=== PATIENT | male | born 1950 | race American Indian/Alaskan Native ===

== ENCOUNTER 2018-01-22 12:20 | Emergency (ER) | payer MEDICARE ==
--- NOTE | 2018-01-22 14:55 | Emergency Department Report ---
ED Male HPI - General Chief complaint: Medical Clearance Stated complaint: CATHER CHANGE Time Seen by Provider: 01/22/18 14:42 Source: patient Mode of arrival: Ambulatory Limitations: No Limitations - History of Present Illness Initial comments: Mr. Crum is a 67 yo male who presents with leaking Salomon catheter. He stated urine is leaking around his indwelling Salomon catheter. He is highly uncomfortable because the urine is soiling his clothes. He denies any pain. He underwent urological procedure by Dr. Martinez at [facility] 2 weeks ago. He denies any pain or fever. He needs his Salomon catheter changed due to the leaking. Currently has a [address] with leg bag. MD Complaint: other -: Gradual, days(s) (2) Severity: mild recent surgery, indwelling catheter denies other symptoms - Related Data Home Medications Medication Instructions Recorded Confirmed Last Taken Fluticasone/Salmeterol [Advair 2 puff INHALATION BID 03/22/14 03/22/14 Unknown Diskus 250-50 mcg] Furosemide [Lasix TAB] 20 mg PO DAILY 03/22/14 03/22/14 Unknown Ipratropium/Albuterol Sulfate 1 ampul INHALATION QID 03/22/14 03/22/14 Unknown [Combivent Respimat] Nabumetone [Relafen] 500 mg PO BID 03/22/14 03/22/14 Unknown Potassium Chloride [Klor-Con 8] 8 meq PO DAILY 03/22/14 03/22/14 Unknown Tamsulosin [Flomax] 0.4 mg PO QHS 03/22/14 03/22/14 Unknown Tramadol HCl [traMADol ER 300 MG] 50 mg PO DAILY 03/22/14 03/22/14 Unknown Previous Rx's Medication Instructions Recorded Last Taken Type Cyclobenzaprine [Flexeril 10mg] 10 mg PO TID PRN #30 tablet 03/22/14 Unknown Rx HYDROcodone/APAP 7.5-325 [[place] 1 each PO Q6HR PRN #20 tablet 03/22/14 Unknown Rx 7.5/325 mg] Ibuprofen [Motrin] 600 mg PO Q8H PRN #60 tablet 03/22/14 Unknown Rx Allergies Allergy/AdvReac Type Severity Reaction Status Date / Time No Known Allergies Allergy Verified 01/22/18 12:25 ED Review of Systems ROS: Stated complaint: CATHER CHANGE Other details as noted in HPI Constitutional: denies: fever, malaise Gastrointestinal: denies: abdominal pain, nausea, vomiting Genitourinary: denies: urgency, dysuria, frequency, hematuria, testicular pain, testicular mass Musculoskeletal: denies: back pain ED Past Medical Hx - Past Medical History Hx Hypertension: Yes Hx Asthma: Yes Additional medical history: ENLARGED PROSTATE - Social History Smoking Status: Never Smoker Substance Use Type: None - Medications Home Medications: Home Medications Medication Instructions Recorded Confirmed Last Taken Type Cyclobenzaprine [Flexeril 10mg] 10 mg PO TID PRN #30 tablet 03/22/14 Unknown Rx Fluticasone/Salmeterol [Advair 2 puff INHALATION BID 03/22/14 03/22/14 Unknown History Diskus 250-50 mcg] Furosemide [Lasix TAB] 20 mg PO DAILY 03/22/14 03/22/14 Unknown History HYDROcodone/APAP 7.5-325 [[place] 1 each PO Q6HR PRN #20 tablet 03/22/14 Unknown Rx 7.5/325 mg] Ibuprofen [Motrin] 600 mg PO Q8H PRN #60 tablet 03/22/14 Unknown Rx Ipratropium/Albuterol Sulfate 1 ampul INHALATION QID 03/22/14 03/22/14 Unknown History [Combivent Respimat] Nabumetone [Relafen] 500 mg PO BID 03/22/14 03/22/14 Unknown History Potassium Chloride [Klor-Con 8] 8 meq PO DAILY 03/22/14 03/22/14 Unknown History Tamsulosin [Flomax] 0.4 mg PO QHS 03/22/14 03/22/14 Unknown History Tramadol HCl [traMADol ER 300 MG] 50 mg PO DAILY 03/22/14 03/22/14 Unknown History ED Physical Exam - General Limitations: No Limitations General appearance: alert, in no apparent distress - Head Head exam: Present: atraumatic, normocephalic - Respiratory Respiratory exam: Absent: respiratory distress - GI/Abdominal GI/Abdominal exam: Present: soft. Absent: distended, tenderness, guarding - exam: Present: other (uncircumcised, no urine leaking from meatus, catheter tubing and leg bag filled with bag) - Extremities Exam Extremities exam: Present: normal inspection ED Course Vital Signs 01/22/18 12:26 Temperature 97.8 F Pulse Rate 86 Respiratory 18 Rate Blood Pressure 156/83 O2 Sat by Pulse 93 Oximetry ED Medical Decision Making - Medical Decision Making Mr. Crum requests salomon catheter change due to leaking of urine. Our staff replaced the salomon catheter without complication. dc'd home. His urologist plans to removed the catheter on January 29 according to patient. Critical care attestation.: If time is entered above; I have spent that time in minutes in the direct care of this critically ill patient, excluding procedure time. ED Disposition Clinical Impression: Salomon catheter problem Disposition: DC-01 TO HOME OR SELFCARE Is pt being admited?: No Does the pt Need Aspirin: No Condition: Stable Instructions: Salomon Catheter Placement and Care (ED) Additional Instructions: Please contact your urologist Dr. Martinez. Referrals: CARLITOS SCHULTZ [Other] - 3-5 Days Time of Disposition: 14:55
[2018-01-22 15:18] VITALS: BP 154/73
== END 2018-01-22 15:16 | disposition home or self-care (01) ==
LOC: ED 12:20
DX: T83.038A Leakage of other urinary catheter, initial encounter (principal); I10 Essential (primary) hypertension; J45.909 Unspecified asthma, uncomplicated; Y84.6 Urinary catheterization as the cause of abnormal reaction of the patient, or of later complication, without mention of misadventure at the time of the procedure
CPT/HCPCS: 51702

== ENCOUNTER 2019-08-15 04:03 | Emergency (ER) | payer MEDICARE ==
[2019-08-15 04:46] VITALS: BP 160/80
[2019-08-15] MEDS ORDERED: ASPIRIN 325 MG TAB PO ONE (04:47)
[2019-08-15 05:18] LABS: Basophils % (Auto) 0.7 % (0.0-1.8); Eosinophils # (Auto) 0.4 K/mm3 (0.0-0.4); Eosinophils % (Auto) 6.3 % (0.0-4.3); Hemoglobin 11.6 gm/dl (11.8-15.2); Lymphocytes # (Auto) 1.3 K/mm3 (1.2-5.4); Lymphocytes % (Auto) 18.4 % (13.4-35.0); Mean Corpuscular HGB Conc 33 % (32-34); Mean Corpuscular Volume 86 fl (84-94); Monocytes # (Auto) 0.8 K/mm3 (0.0-0.8); Monocytes % (Auto) 11.2 % (0.0-7.3); Platelet Count 348 K/mm3 (140-440); Red Cell Distribution Width 14.7 % (13.2-15.2)
[2019-08-15 05:40] LABS: BUN/Creatinine Ratio 16; Blood Urea Nitrogen 13 mg/dL (9-20); Calcium 9.2 mg/dL (8.4-10.2); Hemolysis Index 66
--- NOTE | 2019-08-15 05:49 | XRay Report ---
CHEST 1 VIEW 5:12 AM INDICATION / CLINICAL INFORMATION: Chest Pain. COMPARISON: None available. FINDINGS: SUPPORT DEVICES: None. HEART / MEDIASTINUM: The heart size and pulmonary vasculature are normal. The aorta is normal in moises aleksandr. LUNGS / PLEURA: No significant pulmonary or pleural abnormality. No pneumothorax. ADDITIONAL FINDINGS: No significant additional findings. IMPRESSION:No acute findings. Signer Name: Nawaf Oliver MD Signed: 08/15/2019 5:45 AM Workstation Name: [id number]
== END 2019-08-15 11:32 ==
LOC: ED 04:03
DX: R06.02 Shortness of breath (principal); Z53.21 Procedure and treatment not carried out due to patient leaving prior to being seen by health care provider
CPT/HCPCS: 36415; 71045; 80048; 84484; 85025; 93005; 93010

== ENCOUNTER 2020-03-12 11:47 | Emergency (ER) | payer MEDICARE ==
--- NOTE | 2020-03-12 12:02 | Emergency Department Report ---
Blank Doc - Documentation Documentation: 69-year-old male that presents with SOB w/ history of COPD. This initial assessment/diagnostic orders/clinical plan/treatment(s) is/are subject to change based on patient's health status, clinical progression and re- assessment by fellow clinical providers in the ED. Further treatment and workup at subsequent clinical providers discretion. Patient/guardians urged not to elope from the ED as their condition may be serious if not clinically assessed and managed. Initial orders include: 1- Patient sent to MAIN ED for further evaluation and treatment 2- cardiac workup
--- NOTE | 2020-03-12 12:31 | XRay Report ---
CHEST 2 VIEWS INDICATION / CLINICAL INFORMATION: Chest Pain. COMPARISON: 08/15/2019 FINDINGS: SUPPORT DEVICES: None. HEART / MEDIASTINUM: No significant abnormality. LUNGS / PLEURA: No significant pulmonary or pleural abnormality. No pneumothorax. ADDITIONAL FINDINGS: No significant additional findings. IMPRESSION: 1. No acute findings. Signer Name: Nawaf Murillo MD Signed: 03/12/2020 12:27 PM Workstation Name: [id number]
[2020-03-12 13:57] LABS: Basophils # (Auto) 0.1 K/mm3 (0.0-0.1); Basophils % (Auto) 1.3 % (0.0-1.8); Eosinophils # (Auto) 0.6 K/mm3 (0.0-0.4); Hematocrit 33.5 % (35.5-45.6); Hemoglobin 11.1 gm/dl (11.8-15.2); Lymphocytes # (Auto) 1.3 K/mm3 (1.2-5.4); Lymphocytes % (Auto) 21.3 % (13.4-35.0); Mean Corpuscular HGB Conc 33 % (32-34); Mean Corpuscular Volume 86 fl (84-94); Monocytes # (Auto) 0.6 K/mm3 (0.0-0.8); Monocytes % (Auto) 10.3 % (0.0-7.3); Platelet Count 361 K/mm3 (140-440); Red Cell Distribution Width 14.3 % (13.2-15.2)
[2020-03-12 14:08] LABS: INR 0.88 (0.87-1.13)
[2020-03-12 14:09] LABS: Partial Thromboplastin Time 30.9 Sec. (24.2-36.6)
[2020-03-12 14:21] LABS: Alanine Aminotransferase 12 units/L (7-56); Albumin 3.7 g/dL (3.9-5); BUN/Creatinine Ratio 21; Blood Urea Nitrogen 23 mg/dL (9-20); Calcium 9.6 mg/dL (8.4-10.2); Hemolysis Index 17
[2020-03-12] MEDS ORDERED: ALBUTEROL 2.5 MG/3 ML NEBU IH ONE (14:42)
[2020-03-12] MEDS ORDERED: IPRATROPIUM 0.02% NEBU 2.5 ML IH ONE (14:42)
[2020-03-12] MEDS ORDERED: methylPREDNISolone Sod Succinate 125 MG/2 ML INJ IM ONE (14:43)
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
[2020-03-12 16:23] VITALS: BP 146/78
== END 2020-03-12 17:29 | disposition home or self-care (01) ==
LOC: ED 11:47
DX: J44.1 Chronic obstructive pulmonary disease with (acute) exacerbation (principal); I10 Essential (primary) hypertension; E11.9 Type 2 diabetes mellitus without complications; M19.91 Primary osteoarthritis, unspecified site; Z98.890 Other specified postprocedural states; Z87.891 Personal history of nicotine dependence; Z79.1 Long term (current) use of non-steroidal anti-inflammatories (NSAID); Z79.899 Other long term (current) drug therapy; Z88.8 Allergy status to other drugs, medicaments and biological substances
CPT/HCPCS: 36415; 71046; 80053; 83880; 84484; 85025; 85610; 85730; 93005; 94640; 96372; 99284; J2930; 94644

== ENCOUNTER 2020-03-28 15:15 | Emergency (ER) | payer MEDICARE ==
--- NOTE | 2020-03-28 16:09 | Event Note ---
ED Screening Note Date of service: 03/28/20 Time: 16:06 ED Screening Note: patient here as second visit for COPD exacerbation This initial assessment/diagnostic orders/clinical plan/treatment(s) is/are subject to change based on patients health status, clinical progression and re- assessment by fellow clinical providers in the ED. Further treatment and workup at subsequent clinical providers discretion. Patient/guardian urged not to elope from the ED as their condition may be serious if not clinically assessed and managed. Initial orders include: cbc,cmp, ekg, chest x-ray
--- NOTE | 2020-03-28 16:45 | XRay Report ---
CHEST 2 VIEWS INDICATION / CLINICAL INFORMATION: Dyspnea. COMPARISON: 03/12/2020 FINDINGS: SUPPORT DEVICES: None. HEART / MEDIASTINUM: No significant abnormality. LUNGS / PLEURA: Changes of COPD No pneumothorax. ADDITIONAL FINDINGS: No significant additional findings. IMPRESSION: Changes of COPD. No acute disease or interval change from 03/12/2020 Signer Name: Jonathan Salomon MD FACR Signed: 03/28/2020 4:40 PM Workstation Name: [id number]
[2020-03-28 18:08] LABS: Basophils % (Auto) 0.5 % (0.0-1.8); Eosinophils # (Auto) 0.4 K/mm3 (0.0-0.4); Eosinophils % (Auto) 4.8 % (0.0-4.3); Hematocrit 35.6 % (35.5-45.6); Hemoglobin 11.7 gm/dl (11.8-15.2); Lymphocytes # (Auto) 1.5 K/mm3 (1.2-5.4); Lymphocytes % (Auto) 17.9 % (13.4-35.0); Mean Corpuscular HGB Conc 33 % (32-34); Mean Corpuscular Volume 85 fl (84-94); Monocytes # (Auto) 0.6 K/mm3 (0.0-0.8); Platelet Count 291 K/mm3 (140-440); Red Blood Count 4.19 M/mm3 (3.65-5.03)
[2020-03-28 18:19] LABS: INR 0.97 (0.87-1.13)
[2020-03-28 18:20] LABS: Partial Thromboplastin Time 21.4 Sec. (24.2-36.6)
[2020-03-28 18:25] LABS: Alanine Aminotransferase 12 units/L (7-56); Albumin 3.7 g/dL (3.9-5); BUN/Creatinine Ratio 13; Blood Urea Nitrogen 10 mg/dL (9-20); Calcium 9.6 mg/dL (8.4-10.2); Hemolysis Index 11
[2020-03-28 22:26] VITALS: BP 179/87
[2020-03-28] MEDS ORDERED: ALBUTEROL 2.5 MG/3 ML NEBU IH ONE (22:46)
[2020-03-28] MEDS ORDERED: methylPREDNISolone Sod Succinate 125 MG/2 ML INJ IV ONE (22:46)
[2020-03-28] MEDS ORDERED: IPRATROPIUM 0.02% NEBU 2.5 ML IH ONE (22:46)
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
[2020-03-29] MEDS ORDERED: BENZONATATE 100 MG CAP PO ONE (00:28)
[2020-03-29] MEDS ORDERED: ALBUTEROL 2.5 MG/3 ML NEBU IH ONE (00:28)
== END 2020-03-29 02:00 | disposition home or self-care (01) ==
LOC: ED 15:15
DX: J44.1 Chronic obstructive pulmonary disease with (acute) exacerbation (principal); I10 Essential (primary) hypertension; E11.9 Type 2 diabetes mellitus without complications; M19.90 Unspecified osteoarthritis, unspecified site; Z79.899 Other long term (current) drug therapy; Z88.6 Allergy status to analgesic agent; Z88.8 Allergy status to other drugs, medicaments and biological substances; Z88.2 Allergy status to sulfonamides; Z98.890 Other specified postprocedural states
CPT/HCPCS: 36415; 71046; 80053; 84484; 85025; 85610; 85730; 93005; 94644; 94645; 96374; 99284; J2930

== ENCOUNTER 2020-04-17 07:56 | Observation (INO) | payer MEDICARE ==
--- NOTE | 2020-04-13 11:43 | Anesthesia Consultation ---
Anesthesia Consult and Med Hx Date of service: 04/17/20 - Airway Anesthetic Teeth Evaluation: Good ROM Head & Neck: Adequate Mental/Hyoid Distance: Adequate Mallampati Class: Class II Intubation Access Assessment: Probably Good - Pre-Operative Health Status ASA Pre-Surgery Classification: ASA4 Proposed Anesthetic Plan: General - Pulmonary Hx Smoking: Yes (STOPPED X 25 YRS) Hx Asthma: Yes (IN ER 03/28/2020 FOR TX) SOB: Yes (SOB. Decent activity level) COPD: Yes (DAILY INHALERS) Hx Sleep Apnea: Yes (DX SLEEP APNEA , NO CPAP USE.) - Cardiovascular System Hx Hypertension: Yes (X 15 YRS. Just saw discharge door operator 04/11; awaiting records) Hx Angina: No (Extremely high blood pressure today. BP pill added 04/11 and he didn't start ) - Central Nervous System Hx Back Pain: Yes - Gastrointestinal Hx Gastroesophageal Reflux Disease: Yes (Occasional) - Endocrine Hx Non-Insulin Dependent Diabetes: Yes - Other Systems Hx Cancer: No Hx Obesity: Yes
[2020-04-13 11:56] LABS: Alanine Aminotransferase 12 units/L (7-56); Albumin 3.8 g/dL (3.9-5); Blood Urea Nitrogen 13 mg/dL (9-20); Calcium 9.5 mg/dL (8.4-10.2); Hemolysis Index 12
[2020-04-13 11:59] LABS: BUN/Creatinine Ratio 19
[2020-04-13 12:02] LABS: Hematocrit 32.9 % (35.5-45.6); Hemoglobin 11.4 gm/dl (11.8-15.2); Mean Corpuscular HGB Conc 35 % (32-34); Mean Corpuscular Volume 84 fl (84-94); Platelet Count 355 K/mm3 (140-440); Red Cell Distribution Width 15.4 % (13.2-15.2)
[~2020-04-17 07:56] MED LIST: SODIUM CHLORIDE 0.9% 1000 ML 1,000 ML IV SCH
--- NOTE | 2020-04-17 09:06 | Anesthesia Day of Surgery ---
Anesthesia Day of Surgery - Day of Surgery Patient Examined: Yes (cardiology records reviewed; normal EF, EKG NSR) Patient H&P Reviewed: Yes Patient is NPO: Yes
[2020-04-17] MEDS ORDERED: ceFAZolin/STERILE WATER 2 GM/20 ML SYRINGE IV NR (09:30)
[2020-04-17] MEDS ORDERED: propofoL 200 MG/20 ML VIAL IV ONE (10:53)
[2020-04-17] MEDS ORDERED: fentaNYL 100 MCG/2 ML INJ ONE ×2 (10:53→11:43)
[2020-04-17] MEDS ORDERED: PHENYLEPHRINE/NS 1,000 MCG/10 ML SYRINGE (OR USE) IV ONE (11:11)
[2020-04-17] MEDS ORDERED: ONDANSETRON 4 MG/2 ML INJ ONE (11:11)
[2020-04-17] MEDS ORDERED: KETOROLAC 30 MG/1 ML INJ ONE (11:11)
[2020-04-17] MEDS ORDERED: WATER FOR IRRIG STERILE 1,500 ML BOTTLE IR ONE (12:47)
[2020-04-17] MEDS ORDERED: WATER FOR IRRIG STERILE 2000 ML IR ONE (12:48)
[2020-04-17] MEDS ORDERED: MANNITOL/SORBITOL SOLUTION 3,000 ML IRRIG.SOLN IR ONE (12:48)
[2020-04-17] MEDS ORDERED: SODIUM CHLORIDE 0.9% IRRIG SOLN 3000 ML IR ONE (12:49)
--- NOTE | 2020-04-17 12:50 | Operative Report ---
PREOPERATIVE DIAGNOSES: Urinary retention, morbid obesity, previous suprapubic tube placed at another hospital by interventional. POSTOPERATIVE DIAGNOSES: Urinary retention, morbid obesity, previous suprapubic tube placed at another hospital by interventional with nonfunctioning suprapubic tube, which is not in the bladder, large mass in the bladder obstructing the urethra. Inflammatory changes, suprapubic tube not visualized. PROCEDURE: Cystoscopy channel, TURP, resection of inflammatory mass. SURGEON: Dr. Short. ANESTHESIA: General. FINDINGS: This is a gentleman with retention. He had emergency suprapubic tube placed by interventional at [facility]. He now presents for treatment. All risks and implications discussed. He knows this may need a staged procedure because there was such a large amount of anterior tissue. DESCRIPTION OF PROCEDURE: The patient was brought to the operating room and he was placed on the operating table. Following induction of anesthesia, he was placed in lithotomy position, prepped and draped in usual sterile fashion. He is quite heavy and visualizing in the bladder, was not the easiest. We had to place him in Trendelenburg and the suprapubic tube was not visualized. Bladder was 1-2+ trabeculated. This large inflammatory mass extending anteriorly from the right lobe began resecting with the resectoscope. We used initially the resectoscope, thinking maybe the suprapubic tube can be repositioned, but it was not in. The circumferential resection was carried out. We wanted to be sure there was a channel to the apex. The patient tolerated the procedure well. A large amount of tissue was extracted. The area was cauterized. The patient tolerated the procedure well. No significant complication. Estimated blood loss 100 mL. The irrigation was clear. A 3-way 24-Malaysian was placed after all the chips were evacuated out. He was brought to recovery room in stable condition. JOB# [id number] CATALINA/SAMIA
[2020-04-17] MEDS ORDERED: ZOLPIDEM 5 MG TAB PO PRN (13:00)
[2020-04-17] MEDS ORDERED: ONDANSETRON 4 MG ODT TAB PO PRN (13:00)
[2020-04-17] MEDS ORDERED: SODIUM CHLORIDE 0.9% IRR 1,000 ML BOTTLE IR PRN (13:00)
[2020-04-17] MEDS ORDERED: HYDROcodone/ACETAMINOPHEN 5-325 MG TAB PO PRN (13:00)
[2020-04-17] MEDS ORDERED: NALOXONE 0.4 MG/1 ML INJ IV PRN (13:00)
[2020-04-17] MEDS ORDERED: SODIUM CHLORIDE 0.9% 1000 ML 1,000 ML IV SCH (13:00)
[2020-04-17] MEDS ORDERED: ACETAMINOPHEN 325 MG TAB PO PRN (13:00)
--- NOTE | 2020-04-17 13:00 | Post Operative Note ---
Date of procedure: 04/17/20 Pre-op diagnosis: aur mass Post-op diagnosis: same Findings: large obst mass spt out Procedure: cystoo turp Anesthesia: GETA Surgeon: KIRILL DAVE Estimated blood loss: other (125) Pathology: list (prostate) Specimen disposition: to lab Condition: stable Disposition: PACU
--- NOTE | 2020-04-17 14:15 | Post Anesthesia Evaluation ---
- Post Anesthesia Evaluation Patient Participated: Yes Airway Patent: Yes Stable Respiratory Function: Yes Nausea/Vomiting: No Temp > 96.8F: Yes Pain Manageable: Yes Adequeate Hydration: Yes Anesthesia Complications: No
[2020-04-17] MEDS: fentaNYL 100 MCG/2 ML INJ IV PRN ×2 (14:25→14:35)
--- NOTE | 2020-04-17 14:35 | Fluoroscopy Report ---
Cystogram 3 views INDICATION: Cystogram TURP IMPRESSION: Fluoroscopic copy was utilized during cystoscopy and 3 cystographic images were obtained which were grossly unremarkable Fluoroscopy time: 13 seconds. Fluoroscopic images: 3. Signer Name: Gerry De Guzman MD Signed: 04/17/2020 2:31 PM Workstation Name: [id number]
[2020-04-17] MEDS ORDERED: TAMSULOSIN 0.4 MG CAP PO SCH (18:00)
[2020-04-17] MEDS: MORPHINE 2 MG/1 ML INJ IV PRN (20:25)
[2020-04-17] MEDS ORDERED: ceFAZolin/NS 1 GM/50 ML 1 GM/50 ML BAG IV SCH (21:00)
[2020-04-17] MEDS: DOCUSATE SODIUM 100 MG CAP PO SCH (21:17)
[2020-04-18] MEDS: MORPHINE 2 MG/1 ML INJ IV PRN (05:19)
[2020-04-18 06:34] LABS: BUN/Creatinine Ratio 18; Basophils # (Auto) 0.1 K/mm3 (0.0-0.1); Basophils % (Auto) 0.8 % (0.0-1.8); Blood Urea Nitrogen 14 mg/dL (9-20); Calcium 8.6 mg/dL (8.4-10.2); Eosinophils # (Auto) 0.4 K/mm3 (0.0-0.4); Eosinophils % (Auto) 3.8 % (0.0-4.3); Hematocrit 31.9 % (35.5-45.6); Hemoglobin 10.6 gm/dl (11.8-15.2); Hemolysis Index 2; Lymphocytes # (Auto) 1.2 K/mm3 (1.2-5.4); Lymphocytes % (Auto) 11.7 % (13.4-35.0); Mean Corpuscular HGB Conc 33 % (32-34); Mean Corpuscular Volume 85 fl (84-94); Monocytes # (Auto) 0.7 K/mm3 (0.0-0.8); Monocytes % (Auto) 6.7 % (0.0-7.3); Platelet Count 322 K/mm3 (140-440); Red Blood Count 3.75 M/mm3 (3.65-5.03); Red Cell Distribution Width 15.3 % (13.2-15.2)
[2020-04-18] MEDS ORDERED: ALBUTEROL SULFATE INHALATION PRN (07:25)
[2020-04-18] MEDS ORDERED: IPRATROPIUM INHALATION PRN (07:25)
--- NOTE | 2020-04-18 07:25 | Consultation ---
History of Present Illness - Reason for Consult Consult date: 04/17/20 Medical management Requesting physician: KIRILL DAVE - History of Present Illness Patient had suprapubic tube removal and cystoscopy and TURP. Postop patient is doing well. Past History Past Medical History: COPD, diabetes, hypertension Past Surgical History: TURP Social history: lives with family, full code Family history: hypertension Medications and Allergies Allergies Allergy/AdvReac Type Severity Reaction Status Date / Time ibuprofen Allergy GI UPSET Verified 04/05/20 12:04 sulfamethoxazole Allergy Nausea/ Verified 04/05/20 12:04 [From Bactrim] VOMITING trimethoprim [From Bactrim] Allergy Nausea/ Verified 04/05/20 12:04 VOMITING Home Medications Medication Instructions Recorded Confirmed Last Taken Type Cyclobenzaprine [Flexeril 10mg] 10 mg PO TID PRN #30 tablet 03/22/14 04/17/20 03/06/20 08:00 Rx Furosemide [Lasix TAB] 20 mg PO DAILY 03/22/14 04/17/20 04/16/20 08:00 History HYDROcodone/APAP 7.5-325 [[place] 1 each PO Q6HR PRN #20 tablet 03/22/14 04/17/20 04/10/20 08:00 Rx 7.5/325 mg] Potassium Chloride [Klor-Con 8] 8 meq PO DAILY 03/22/14 04/17/20 04/16/20 08:00 History Tamsulosin [Flomax] 0.4 mg PO QHS 03/22/14 04/17/20 04/16/20 21:00 History ALBUTEROL NEB's [Proventil 0.083% 2.5 mg IH Q6H PRN #1 box 03/29/20 04/17/20 04/17/20 06:30 Rx NEBS] Fluticasone/Salmeterol [Advair 2 puff INHALATION BID #1 inh 03/29/20 04/17/20 04/17/20 06:30 Rx Diskus 250-50 mcg] Ipratropium/Albuterol Sulfate 1 ampul INHALATION QID PRN #1 03/29/20 04/17/20 04/17/20 06:30 Rx [Combivent Respimat] lisinopriL [Zestril TAB] 10 mg PO QDAY 04/05/20 04/17/20 04/17/20 06:30 History metFORMIN [Glucophage] 500 mg PO BID 04/05/20 04/17/20 04/16/20 17:00 History Ciprofloxacin HCl [Ciprofloxacin 500 mg PO Q12HR #14 tab 04/13/20 Unknown Rx TAB] Active Meds: Active Medications Acetaminophen (Tylenol) 650 mg PO Q4H PRN PRN Reason: Pain MILD(1-3)/Fever >100.5/OCONNELL Acetaminophen/Hydrocodone Bitart ([place] 5/325) 2 each PO Q4H PRN PRN Reason: Pain, Moderate (4-6) Docusate Sodium (Colace) 100 mg PO BID ANAID Last Admin: 04/17/20 21:17 Dose: 100 mg Documented by: Sodium Chloride (Nacl 0.9% 1000 Ml) 1,000 mls @ 125 mls/hr IV DIRECT ANAID Last Admin: 04/18/20 05:19 Dose: 125 mls/hr Documented by: Cefazolin Sodium (Ancef/Ns 1 Gm/50 Ml) 1 gm in 50 mls @ 100 mls/hr IV Q8H ANAID; Protocol Stop: 04/18/20 21:29 Last Admin: 04/17/20 21:17 Dose: 100 mls/hr Documented by: Morphine Sulfate (Morphine) 2 mg IV Q4H PRN PRN Reason: Pain, Moderate (4-6) Last Admin: 04/18/20 05:19 Dose: 2 mg Documented by: Naloxone HCl (Naloxone) 0.1 mg IV Q2MIN PRN PRN Reason: Res Rate </= 8 or 02 SAT < 92% Ondansetron HCl (Zofran Odt) 4 mg PO Q8H PRN PRN Reason: Nausea And Vomiting Sodium Chloride (Nacl 0.9%) 30 ml IR Q2H PRN PRN Reason: Wound Care Sodium Chloride (Nacl 0.9%) 3,000 ml IR ONCE ONE Stop: 04/18/20 08:01 Last Admin: 04/18/20 04:00 Dose: 3,000 ml Documented by: Tamsulosin HCl (Flomax) 0.4 mg PO QPM ANAID Last Admin: 04/17/20 21:17 Dose: 0.4 mg Documented by: Zolpidem Tartrate (Ambien) 5 mg PO QHS PRN PRN Reason: Sleep Review of Systems All systems: negative Genitourinary Male: dysuria, hematuria, urinary frequency, urinary hesitancy Exam - Constitutional Vitals: Temp Pulse Resp BP Pulse Ox 98.8 F 85 20 106/50 97 04/18/20 07:15 04/18/20 07:15 04/18/20 07:15 04/18/20 07:15 04/18/20 07:15 General appearance: Present: no acute distress, well-nourished - EENT Eyes: Present: PERRL ENT: hearing intact, clear oral mucosa - Neck Neck: Present: supple, normal ROM - Respiratory Respiratory effort: normal Respiratory: bilateral: CTA - Cardiovascular Rhythm: regular Heart Sounds: Present: S1 & S2. Absent: rub, click - Extremities Extremities: pulses symmetrical, No edema Peripheral Pulses: within normal limits - Abdominal General gastrointestinal: Present: soft, non-tender, non-distended, normal bowel sounds Male genitourinary: Present: normal - Rectal Rectal Exam: deferred - Integumentary Integumentary: Present: clear, warm, dry - Musculoskeletal Musculoskeletal: gait normal, strength equal bilaterally - Psychiatric Psychiatric: appropriate mood/affect, intact judgment & insight - Neurologic Neurologic: CNII-XII intact, moves all extremities - Allied Health Allied health notes reviewed: nursing, case management Results - Labs CBC & Chem 7: 04/18/20 05:34 04/18/20 05:34 Labs: Abnormal lab results 04/17/20 04/17/20 04/17/20 Range/Units 10:13 13:03 22:25 Hgb (11.8-15.2) gm/dl Hct (35.5-45.6) % RDW (13.2-15.2) % Lymph % (Auto) (13.4-35.0) % Seg Neutrophils % (40.0-70.0) % Seg Neutrophils # (1.8-7.7) K/mm3 Glucose (75-100) mg/dL POC Glucose 131 H 127 H 160 H (70-105) 04/18/20 04/18/20 Range/Units 05:34 05:34 Hgb 10.6 L (11.8-15.2) gm/dl Hct 31.9 L (35.5-45.6) % RDW 15.3 H (13.2-15.2) % Lymph % (Auto) 11.7 L (13.4-35.0) % Seg Neutrophils % 77.0 H (40.0-70.0) % Seg Neutrophils # 7.9 H (1.8-7.7) K/mm3 Glucose 141 H (75-100) mg/dL POC Glucose (70-105) Short CBC 04/18/20 Range/Units 05:34 WBC 10.3 (4.5-11.0) K/mm3 Hgb 10.6 L (11.8-15.2) gm/dl Hct 31.9 L (35.5-45.6) % Plt Count 322 (140-440) K/mm3 BMP 04/18/20 05:34 Sodium 137 Potassium 4.4 Chloride 98.0 Carbon Dioxide 26 BUN 14 Creatinine 0.8 Glucose 141 H Calcium 8.6 Assessment and Plan - Patient Problems (1) Urinary retention Current Visit: No Status: Acute Plan to address problem: Had TURP and removal of suprapubic catheter. Patient also had an obstructive mass which was removed from the bladder. Patient is doing well (2) Hypertension Current Visit: Yes Status: Chronic Qualifiers: Hypertension type: essential hypertension Qualified Code(s): I10 - Essential (primary) hypertension Plan to address problem: Continue antihypertensives (3) Asthma Current Visit: Yes Status: Inactive Qualifiers: Asthma severity: mild Plan to address problem: Continue Advair and Combivent (4) BPH (benign prostatic hyperplasia) Current Visit: Yes Status: Chronic Qualifiers: Lower urinary tract symptom presence: symptoms present Plan to address problem: Was on Flomax May not need Flomax because patient (5) T2DM (type 2 diabetes mellitus) Current Visit: Yes Status: Chronic Qualifiers: Diabetes mellitus skilled nursing 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
--- NOTE | 2020-04-18 07:42 | Progress Note ---
Assessment and Plan - Patient Problems (1) Urinary retention Current Visit: No Status: Acute Plan to address problem: Had TURP and removal of suprapubic catheter. Patient also had an obstructive mass which was removed from the bladder. Patient is doing well (2) Hypertension Current Visit: Yes Status: Chronic Qualifiers: Hypertension type: essential hypertension Qualified Code(s): I10 - Essential (primary) hypertension Plan to address problem: Continue antihypertensives (3) Asthma Current Visit: Yes Status: Inactive Qualifiers: Asthma severity: mild Plan to address problem: Continue Advair and Combivent (4) BPH (benign prostatic hyperplasia) Current Visit: Yes Status: Chronic Qualifiers: Lower urinary tract symptom presence: symptoms present Plan to address problem: Was on Flomax May not need Flomax because patient (5) T2DM (type 2 diabetes mellitus) Current Visit: Yes Status: Chronic Qualifiers: Diabetes mellitus fpc insulin use: unspecified fpc insulin use status Plan to address problem: Coverage for now Patient is on metformin which is kept on hold (6) DVT prophylaxis Current Visit: Yes Status: Acute Plan to address problem: On SCDs Subjective Date of service: 04/18/20 Principal diagnosis: Status post recent cystoscopy and TURP Interval history: Postop patient doing well. Has slight residual pain Objective - Constitutional Vitals: Vital Signs - 12hr 04/17/20 04/17/20 04/18/20 19:46 23:29 00:41 Temperature 98.8 F 98.3 F Pulse Rate 71 79 Pulse Rate [ 71 Right Radial] Respiratory 18 18 18 Rate Blood Pressure 157/75 138/77 O2 Sat by Pulse 100 100 100 Oximetry 04/18/20 07:15 Temperature 98.8 F Pulse Rate 85 Pulse Rate [ Right Radial] Respiratory 20 Rate Blood Pressure 106/50 O2 Sat by Pulse 97 Oximetry General appearance: Present: no acute distress, well-nourished - EENT Eyes: PERRL, EOM intact ENT: hearing intact, clear oral mucosa Ears: bilateral: normal - Neck Neck: supple, normal ROM - Respiratory Respiratory effort: normal Respiratory: bilateral: CTA - Breasts Breasts: normal - Cardiovascular Heart rate: 78 Rhythm: regular Heart Sounds: Present: S1 & S2. Absent: gallop, rub Extremities: no ischemia, pulses intact, No edema, normal color, Full ROM - Gastrointestinal General gastrointestinal: Present: soft, non-tender, non-distended, normal bowel sounds - Genitourinary Male genitourinary: normal - Integumentary Integumentary: clear, warm, dry - Musculoskeletal Musculoskeletal: 1, strength equal bilaterally - Neurologic Neurologic: moves all extremities - Psychiatric Psychiatric: memory intact, appropriate mood/affect, intact judgment & insight - Allied health notes Allied health notes reviewed: nursing, case management - Labs CBC & Chem 7: 04/18/20 05:34 04/18/20 05:34 Labs: Abnormal lab results 04/17/20 04/17/20 04/17/20 Range/Units 10:13 13:03 22:25 Hgb (11.8-15.2) gm/dl Hct (35.5-45.6) % RDW (13.2-15.2) % Lymph % (Auto) (13.4-35.0) % Seg Neutrophils % (40.0-70.0) % Seg Neutrophils # (1.8-7.7) K/mm3 Glucose (75-100) mg/dL POC Glucose 131 H 127 H 160 H (70-105) 04/18/20 04/18/20 04/18/20 Range/Units 05:34 05:34 07:28 Hgb 10.6 L (11.8-15.2) gm/dl Hct 31.9 L (35.5-45.6) % RDW 15.3 H (13.2-15.2) % Lymph % (Auto) 11.7 L (13.4-35.0) % Seg Neutrophils % 77.0 H (40.0-70.0) % Seg Neutrophils # 7.9 H (1.8-7.7) K/mm3 Glucose 141 H (75-100) mg/dL POC Glucose 169 H (70-105)
[2020-04-18] MEDS ORDERED: CYCLOBENZAPRINE 10 MG TAB PO PRN (08:00)
[2020-04-18] MEDS ORDERED: SODIUM CHLORIDE 0.9% IRRIG SOLN 3000 ML IR ONE (08:00)
[2020-04-18] MEDS ORDERED: HYDROcodone/ACETAMINOPHEN 7.5-325MG TAB PO PRN (08:30)
[2020-04-18] MEDS ORDERED: HYDROmorphone 1 MG/1 ML INJ IV PRN (08:30)
[2020-04-18] MEDS ORDERED: ALBUTEROL 2.5 MG/3 ML NEBU IH PRN (08:30)
[2020-04-18] MEDS ORDERED: SODIUM CHLORIDE 0.9% IRRIG SOLN 2000 ML IR ONE (09:00)
[2020-04-18] MEDS ORDERED: ceFAZolin/NS 1 GM/50 ML 1 GM/50 ML BAG IV SCH (09:00)
[2020-04-18] MEDS: SODIUM CHLORIDE 0.9% IRRIG SOLN 2000 ML IR SCH ×2 (09:20→10:30)
[2020-04-18] MEDS ORDERED: LISINOPRIL 10 MG TAB PO SCH (10:00)
[2020-04-18] MEDS ORDERED: BUDESONIDE 0.5 MG/2 ML NEBU IH SCH (10:00)
[2020-04-18] MEDS ORDERED: FLUTICASONE INHALATION SCH (10:00)
[2020-04-18] MEDS ORDERED: FUROSEMIDE 20 MG TAB PO SCH (10:00)
[2020-04-18] MEDS ORDERED: CIPROFLOXACIN HCL 500 MG PO SCH (10:00)
[2020-04-18] MEDS ORDERED: POTASSIUM CHLORIDE ER 8 MEQ TAB PO SCH (10:00)
[2020-04-18] MEDS ORDERED: SALMETEROL INHALATION SCH (10:00)
[2020-04-18] MEDS ORDERED: ARFORMOTEROL 15 MCG/2 ML NEBU IH SCH (10:00)
--- NOTE | 2020-04-18 10:48 | Progress Note ---
Assessment and Plan severe obesity mass prostate post tur home with cath h/h ok Subjective Date of service: 04/18/20 Principal diagnosis: Status post recent cystoscopy and TURP Objective - Constitutional Vitals: Vital Signs - 12hr 04/17/20 04/18/20 04/18/20 23:29 00:41 07:15 Temperature 98.3 F 98.8 F Pulse Rate 79 85 Pulse Rate [ 71 Right Radial] Respiratory 18 18 20 Rate Blood Pressure 138/77 106/50 Blood Pressure [Left] O2 Sat by Pulse 100 100 97 Oximetry 04/18/20 07:47 Temperature 98.8 F Pulse Rate 80 Pulse Rate [ Right Radial] Respiratory 20 Rate Blood Pressure Blood Pressure 106/50 [Left] O2 Sat by Pulse 97 Oximetry General appearance: Present: no acute distress - Neck Neck: supple - Respiratory Respiratory effort: normal Extremities: no ischemia - Gastrointestinal General gastrointestinal: Present: soft - Labs CBC & Chem 7: 04/18/20 05:34 04/18/20 05:34 Labs: Abnormal lab results 04/17/20 04/17/20 04/18/20 Range/Units 13:03 22:25 05:34 Hgb 10.6 L (11.8-15.2) gm/dl Hct 31.9 L (35.5-45.6) % RDW 15.3 H (13.2-15.2) % Lymph % (Auto) 11.7 L (13.4-35.0) % Seg Neutrophils % 77.0 H (40.0-70.0) % Seg Neutrophils # 7.9 H (1.8-7.7) K/mm3 Glucose (75-100) mg/dL POC Glucose 127 H 160 H (70-105) 04/18/20 04/18/20 Range/Units 05:34 07:28 Hgb (11.8-15.2) gm/dl Hct (35.5-45.6) % RDW (13.2-15.2) % Lymph % (Auto) (13.4-35.0) % Seg Neutrophils % (40.0-70.0) % Seg Neutrophils # (1.8-7.7) K/mm3 Glucose 141 H (75-100) mg/dL POC Glucose 169 H (70-105) Medications & Allergies - Medications Allergies/Adverse Reactions: Allergies ibuprofen Allergy (Verified 04/05/20 12:04) GI UPSET sulfamethoxazole [From Bactrim] Allergy (Verified 04/05/20 12:04) Nausea/ VOMITING trimethoprim [From Bactrim] Allergy (Verified 04/05/20 12:04) Nausea/ VOMITING Home Medications: Home Medications Medication Instructions Recorded Confirmed Last Taken Type Cyclobenzaprine [Flexeril 10mg] 10 mg PO TID PRN #30 tablet 03/22/14 04/17/20 03/06/20 08:00 Rx Furosemide [Lasix TAB] 20 mg PO DAILY 03/22/14 04/17/20 04/16/20 08:00 History HYDROcodone/APAP 7.5-325 [[place] 1 each PO Q6HR PRN #20 tablet 03/22/14 04/17/20 04/10/20 08:00 Rx 7.5/325 mg] Potassium Chloride [Klor-Con 8] 8 meq PO DAILY 03/22/14 04/17/20 04/16/20 08:00 History Tamsulosin [Flomax] 0.4 mg PO QHS 03/22/14 04/17/20 04/16/20 21:00 History ALBUTEROL NEB's [Proventil 0.083% 2.5 mg IH Q6H PRN #1 box 03/29/20 04/17/20 04/17/20 06:30 Rx NEBS] Fluticasone/Salmeterol [Advair 2 puff INHALATION BID #1 inh 03/29/20 04/17/20 04/17/20 06:30 Rx Diskus 250-50 mcg] Ipratropium/Albuterol Sulfate 1 ampul INHALATION QID PRN #1 03/29/20 04/17/20 04/17/20 06:30 Rx [Combivent Respimat] lisinopriL [Zestril TAB] 10 mg PO QDAY 04/05/20 04/17/20 04/17/20 06:30 History metFORMIN [Glucophage] 500 mg PO BID 04/05/20 04/17/20 04/16/20 17:00 History Ciprofloxacin HCl [Ciprofloxacin 500 mg PO Q12HR #14 tab 04/13/20 Unknown Rx TAB] Active Medications: Generic Name Dose Route Start Last Admin Trade Name Freq PRN Reason Stop Dose Admin Acetaminophen 650 mg 04/17/20 13:00 Tylenol PO Q4H PRN Pain MILD(1-3)/Fever >100.5/OCONNELL Acetaminophen/Hydrocodone Bitart 1 each 04/18/20 08:30 [place] 7.5/325 PO Q6H PRN Pain, Moderate (4-6) Albuterol 2.5 mg 04/18/20 08:30 Proventil IH Q6H PRN Wheezing Albuterol/Ipratropium 1 ampul 04/18/20 14:00 Duoneb *Not For Prn Use* IH Q6HRT ANAID Arformoterol Tartrate 15 mcg 04/18/20 10:00 Brovana Nebu IH Q12HRT ANAID Budesonide 1 mg 04/18/20 10:00 Pulmicort IH Q12HRT ANAID Cyclobenzaprine HCl 10 mg 04/18/20 08:00 Flexeril PO TID PRN Muscle Spasm Docusate Sodium 100 mg 04/17/20 22:00 04/17/20 21:17 Colace PO 100 mg BID ANAID Administration Furosemide 20 mg 04/18/20 10:00 Lasix PO DAILY ANAID Hydromorphone HCl 1 mg 04/18/20 08:30 Dilaudid IV Q3H PRN Pain , Severe (7-10) Sodium Chloride 1,000 mls @ 125 mls/hr 04/17/20 13:00 04/18/20 05:19 Nacl 0.9% 1000 Ml IV 125 mls/hr DIRECT ANAID Administration Cefazolin Sodium 1 gm in 50 mls @ 100 mls/hr 04/18/20 09:00 04/18/20 09:24 Ancef/Ns 1 Gm/50 Ml IV 04/19/20 01:29 100 mls/hr Q8H ANAID Administration Protocol Lisinopril 10 mg 04/18/20 10:00 Zestril PO QDAY [facility] Miscellaneous Medication 500 mg 04/18/20 10:00 Ciprofloxacin Hcl [Ciprofloxacin Tab] PO Q12HR ANAID Morphine Sulfate 2 mg 04/17/20 13:00 04/18/20 05:19 Morphine IV 2 mg Q4H PRN Administration Pain, Moderate (4-6) Naloxone HCl 0.1 mg 04/17/20 13:00 Naloxone IV Q2MIN PRN Res Rate </= 8 or 02 SAT < 92% Ondansetron HCl 4 mg 04/17/20 13:00 Zofran Odt PO Q8H PRN Nausea And Vomiting Potassium Chloride 8 meq 04/18/20 10:00 Klor-Con 8 PO DAILY ANAID Sodium Chloride 30 ml 04/17/20 13:00 Nacl 0.9% IR Q2H PRN Wound Care Sodium Chloride 2,000 ml 04/18/20 10:00 Nacl 0.9% IR DIRECT ANAID Tamsulosin HCl 0.4 mg 04/17/20 18:00 04/17/20 21:17 Flomax PO 0.4 mg QPM ANAID Administration Zolpidem Tartrate 5 mg 04/17/20 13:00 Ambien PO QHS PRN Sleep
--- NOTE | 2020-04-18 10:50 | Discharge Summary ---
Short Stay Discharge Plan Activity: other (no strainin g ) Weight Bearing Status: Full Weight Bearing Diet: low fat, low cholesterol, low salt, diabetic Special Instructions: other (inc fluids ) Durable Medical Equipment Needed Upon Discharge: other (home with salomon ) Follow up with: SHERYL ALAN NP-C [Primary Care Provider] - 7 Days KIRILL DAVE MD [Staff Physician] - 7 Days
[2020-04-18] MEDS: DOCUSATE SODIUM 100 MG CAP PO SCH (11:05)
[2020-04-18 11:56] VITALS: BP 108/56
[2020-04-18] MEDS ORDERED: IPRATROPIUM/ALBUTEROL SULFATE 3 ML AMPUL.NEB IH SCH (14:00)
== END 2020-04-18 13:40 | disposition home health service (06) ==
LOC: OR 07:56 → 3A 13:00 → 3B-SURG 16:28
PROVIDERS: ADMIT Urology; ATTEND Urology
DX: N40.0 Benign prostatic hyperplasia without lower urinary tract symptoms (principal); Z20.828 Contact with and (suspected) exposure to other viral communicable diseases; R33.9 Retention of urine, unspecified; I10 Essential (primary) hypertension; E11.9 Type 2 diabetes mellitus without complications; E66.9 Obesity, unspecified; J44.9 Chronic obstructive pulmonary disease, unspecified; Z79.84 Long term (current) use of oral hypoglycemic drugs; Z71.3 Dietary counseling and surveillance; Z79.899 Other long term (current) drug therapy; Z68.43 Body mass index [BMI] 50.0-59.9, adult
CPT/HCPCS: 36415; 52630; 74430; 80048; 80053; 82962; 85025; 85027; 86850; 86900; 86901; 88305; 88344; 96361; 96365; 96366; 96375; 96376; A4217; G0378; J0690; J1885; J2270; J2370; J2405; J2704; J3010; J7030; Q9967; U0003

== ENCOUNTER 2020-05-25 12:43 | Emergency (ER) | payer MEDICARE ==
[2020-05-25] MEDS ORDERED: ALBUTEROL 2.5 MG/3 ML NEBU IH ONE (13:23)
[2020-05-25] MEDS ORDERED: IPRATROPIUM 0.02% NEBU 2.5 ML IH ONE (13:23)
[2020-05-25] MEDS ORDERED: dexAMETHasone 20 MG/5 ML VIAL IM ONE (13:23)
--- NOTE | 2020-05-25 13:24 | Event Note ---
ED Screening Note ED Screening Note: COPD/asthma exacerbation began yesterday using neb tx at home, on oral steroids SOB, dry cough no productive cough, no fever, no CP, no n/v/d This initial assessment/diagnostic orders/clinical plan/treatment(s) is/are subject to change based on patients health status, clinical progression and re-assessment by fellow clinical providers in the ED. Further treatment and workup at subsequent clinical providers discretion. Patient/guardian urged not to elope from the ED as their condition may be serious if not clinically assessed and managed. Initial orders include: neb tx steroids CXR expiratory wheezing bilaterally
--- NOTE | 2020-05-25 14:39 | XRay Report ---
CHEST 2 VIEWS INDICATION / CLINICAL INFORMATION: SOB, wheezing, dry cough. COMPARISON: 03/28/2020 FINDINGS: SUPPORT DEVICES: None. HEART / MEDIASTINUM: No significant abnormality. LUNGS / PLEURA: No significant pulmonary or pleural abnormality. No pneumothorax. ADDITIONAL FINDINGS: No significant additional findings. IMPRESSION: 1. No acute findings. Signer Name: Nawaf Murillo MD Signed: 05/25/2020 2:34 PM Workstation Name: [id number]
[2020-05-25 15:03] LABS: Basophils % (Auto) 0.3 % (0.0-1.8); Eosinophils # (Auto) 0.1 K/mm3 (0.0-0.4); Eosinophils % (Auto) 1.3 % (0.0-4.3); Hematocrit 35.4 % (35.5-45.6); Hemoglobin 11.3 gm/dl (11.8-15.2); Lymphocytes # (Auto) 0.7 K/mm3 (1.2-5.4); Mean Corpuscular HGB Conc 32 % (32-34); Mean Corpuscular Volume 86 fl (84-94); Monocytes # (Auto) 0.3 K/mm3 (0.0-0.8); Monocytes % (Auto) 4.5 % (0.0-7.3); Platelet Count 317 K/mm3 (140-440); Red Blood Count 4.11 M/mm3 (3.65-5.03); Red Cell Distribution Width 16.2 % (13.2-15.2)
[2020-05-25 15:05] LABS: Alanine Aminotransferase 10 units/L (7-56); Albumin 3.7 g/dL (3.9-5); BUN/Creatinine Ratio 24; Blood Urea Nitrogen 19 mg/dL (9-20); Calcium 9.6 mg/dL (8.4-10.2); Hemolysis Index 25
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
[2020-05-25 15:40] LABS: INR 0.89 (0.87-1.13)
[2020-05-25 17:15] VITALS: BP 178/89
== END 2020-05-25 17:15 | disposition home or self-care (01) ==
LOC: ED 12:43
DX: J44.1 Chronic obstructive pulmonary disease with (acute) exacerbation (principal); I10 Essential (primary) hypertension; E11.9 Type 2 diabetes mellitus without complications; M19.91 Primary osteoarthritis, unspecified site; Z98.890 Other specified postprocedural states; Z87.891 Personal history of nicotine dependence; Z79.84 Long term (current) use of oral hypoglycemic drugs; Z79.2 Long term (current) use of antibiotics; Z79.899 Other long term (current) drug therapy; Z88.8 Allergy status to other drugs, medicaments and biological substances
CPT/HCPCS: 36415; 71046; 80053; 83880; 84484; 85025; 85610; 85730; 93005; 94640; 96372; 99284; J1100; 94644

== ENCOUNTER 2021-01-15 09:21 | Emergency (ER) | payer MEDICARE ==
[2021-01-15 09:44] VITALS: BP 150/94
--- NOTE | 2021-01-15 10:58 | Emergency Department Report ---
Blank Doc - Documentation Documentation: 70-year-old male that presents with chest tightness and shortness of breath. History of asthma. Exam: Slight expiratory wheezing noted bilaterally 1- This is a initial triage assessment/medical screening only. Full assessment and work-up will be completed once the patient is in proper hospital gown, ED bed and in a private room setting. This initial assessment/diagnostic orders/clinical plan/ treatment(s) is/are subject to change based on pt's health status, clinical progression and re-assessment by fellow clinical providers in the ED. Further treatment and workup at subsequent clinical providers discretion. Patient/guardians urged not to elope from ED as their condition may be serious if not clinically assessed and managed. 2-cardiac workup
[2021-01-15 11:04] LABS: Basophils % (Auto) 0.7 % (0.0-1.8); Eosinophils # (Auto) 0.5 K/mm3 (0.0-0.4); Hematocrit 36.4 % (35.5-45.6); Hemoglobin 12.1 gm/dl (11.8-15.2); Lymphocytes # (Auto) 1.1 K/mm3 (1.2-5.4); Lymphocytes % (Auto) 16.6 % (13.4-35.0); Mean Corpuscular HGB Conc 33 % (32-34); Mean Corpuscular Volume 85 fl (84-94); Monocytes # (Auto) 0.6 K/mm3 (0.0-0.8); Monocytes % (Auto) 8.4 % (0.0-7.3); Platelet Count 334 K/mm3 (140-440); Red Blood Count 4.28 M/mm3 (3.65-5.03)
--- NOTE | 2021-01-15 11:10 | XRay Report ---
CHEST 2 VIEWS INDICATION / CLINICAL INFORMATION: Chest Pain. COMPARISON: 05/25/2020 FINDINGS: SUPPORT DEVICES: None. HEART / MEDIASTINUM: Stable. LUNGS / PLEURA: No significant pulmonary or pleural abnormality. No pneumothorax. ADDITIONAL FINDINGS: No significant additional findings. IMPRESSION: 1. No acute findings. No significant interval change. Signer Name: Michael Ramsay MD Signed: 01/15/2021 11:06 AM Workstation Name: [id number]
[2021-01-15 11:16] LABS: INR 0.9 (0.87-1.13)
[2021-01-15 11:17] LABS: Partial Thromboplastin Time 30.9 Sec. (24.2-36.6)
[2021-01-15 11:34] LABS: Alanine Aminotransferase 10 units/L (7-56); Albumin 3.9 g/dL (3.9-5); BUN/Creatinine Ratio 14; Blood Urea Nitrogen 14 mg/dL (9-20); Calcium 9.3 mg/dL (8.4-10.2); Hemolysis Index 6
--- NOTE | 2021-01-19 18:28 | Electrocardiograph Report ---
[facility] Test Date: 2021-01-15 Test Time: 09:48:58 Pat Name: AKANKSHA LEMOS Department: Room: Gender: M Shipsmith: JODI : 1950 Requested By: NEHAL FISHMAN Order Number: [id number] Reading MD: Matthew Keating Measurements Intervals [place] Rate: 89 P: 69 [place]: 166 QRS: 54 QRSD: 94 T: 4 QT: 370 QTc: 450 Interpretive Statements Sinus rhythm No previous ECG available for comparison Electronically Signed On 01-19-2021 18:28:05 EDT by Matthew Keating
== END 2021-01-15 13:37 | disposition left against medical advice (07) ==
LOC: ED 09:21
DX: R07.89 Other chest pain (principal); R06.02 Shortness of breath; Z53.21 Procedure and treatment not carried out due to patient leaving prior to being seen by health care provider
CPT/HCPCS: 36415; 71046; 80053; 84484; 85025; 85610; 85730; 93005

== ENCOUNTER 2021-10-04 13:50 | Inpatient (IN) | payer MEDICARE ==
--- NOTE | 2021-10-04 16:58 | XRay Report ---
CHEST 1 VIEW 10/04/2021 3:49 PM INDICATION / CLINICAL INFORMATION: sob. COMPARISON: 01/15/2021 FINDINGS: SUPPORT DEVICES: None. HEART / MEDIASTINUM: No significant abnormality. LUNGS / PLEURA: No significant pulmonary or pleural abnormality. No pneumothorax. ADDITIONAL FINDINGS: No significant additional findings. IMPRESSION: 1. No acute findings. Signer Name: Michael Jeronimo DO Signed: 10/04/2021 4:53 PM Workstation Name: [id number]
[2021-10-04] MEDS ORDERED: ALBUTEROL 2.5 MG/3 ML NEBU IH ONE (17:20)
[2021-10-04] MEDS ORDERED: predniSONE 20 MG TAB PO ONE (17:20)
[2021-10-04] MEDS ORDERED: IPRATROPIUM 0.02% NEBU 2.5 ML IH ONE (17:20)
[2021-10-04] MEDS ORDERED: HYDROcodone/ACETAMINOPHEN 5-325 MG TAB PO ONE (17:20)
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
[2021-10-04 18:07] LABS: Creatine Kinase MB 10.9 ng/mL (0.0-4.0)
[2021-10-04 18:08] LABS: Alanine Aminotransferase 17 units/L (7-56); Albumin 3.7 g/dL (3.9-5); BUN/Creatinine Ratio 19; Basophils % (Auto) 0.7 % (0.0-1.8); Blood Urea Nitrogen 17 mg/dL (9-20); Eosinophils # (Auto) 0.3 K/mm3 (0.0-0.4); Eosinophils % (Auto) 4.6 % (0.0-4.3); Hematocrit 36.2 % (35.5-45.6); Hemoglobin 11.7 gm/dl (11.8-15.2); Hemolysis Index 21; Lymphocytes # (Auto) 1.1 K/mm3 (1.2-5.4); Lymphocytes % (Auto) 18.7 % (13.4-35.0); Mean Corpuscular HGB Conc 32 % (32-34); Mean Corpuscular Volume 86 fl (84-94); Monocytes # (Auto) 0.6 K/mm3 (0.0-0.8); Monocytes % (Auto) 10.3 % (0.0-7.3); Platelet Count 328 K/mm3 (140-440); Red Blood Count 4.22 M/mm3 (3.65-5.03); Red Cell Distribution Width 15.3 % (13.2-15.2)
[2021-10-04 18:21] LABS: INR 0.9 (0.87-1.13)
--- NOTE | 2021-10-04 20:05 | Cat Scan Report ---
CTA CHEST WITH CONTRAST INDICATION / CLINICAL INFORMATION: Shortness of breath 100ML 0MNIPAQUE 350 GIVEN. TECHNIQUE: Axial CT images were obtained through the chest after injection of IV contrast. 3 plane FL P and/or 3D reconstructions were produced. All CT scans at this location are performed using CT dose reduction for ALARA by means of automated exposure control. COMPARISON: None available. FINDINGS: PULMONARY ARTERIES: No pulmonary emboli. THORACIC AORTA: No significant abnormality. HEART: No significant abnormality. CORONARY ARTERY CALCIFICATION: None. MEDIASTINUM / DORIS: No significant abnormality. PLEURA: No pleural effusion. No pneumothorax. LUNGS: No acute air space or interstitial disease. ADDITIONAL FINDINGS: None. UPPER ABDOMEN: No acute findings. SKELETAL STRUCTURES: Scattered degeneration. IMPRESSION: 1. No CT evidence for pulmonary embolism. 2. No acute findings. Signer Name: Michael Jeronimo DO Signed: 10/04/2021 8:00 PM Workstation Name: [id number]
[2021-10-04] MEDS ORDERED: SODIUM CHLORIDE 0.9% 1000 ML 1,000 ML IV ONE (20:09)
[2021-10-04 20:27] LABS: Mucus,Urine 3+ /HPF
[2021-10-04 20:28] LABS: Color,Urine Red (Yellow); RBC,Urine > 182.0 /HPF (0.0-6.0); WBC,Urine > 182.0 /HPF (0.0-6.0)
[2021-10-04 20:29] LABS: Bilirubin,Urine Color Interference (Negative); Blood,Urine TNR (Negative); PH,Urine TNR (5.0-7.0); Protein,Urine TNR mg/dL (Negative); Urobilinogen,Urine TNR mg/dL (<2.0)
[2021-10-04] MEDS ORDERED: cefTRIAXone/NS 1 GM/50 ML 1 GM/50 ML BAG IV ONE (21:11)
[2021-10-04] MEDS ORDERED: ACETAMINOPHEN 325 MG TAB PO PRN (21:58)
[2021-10-04] MEDS ORDERED: DEXTROSE 50% IN WATER (25GM) 50 ML SYRINGE IV PRN (21:58)
[2021-10-04] MEDS ORDERED: ONDANSETRON 4 MG/2 ML INJ IV PRN (21:58)
[2021-10-04] MEDS ORDERED: MORPHINE 2 MG/1 ML INJ IV PRN (21:58)
[2021-10-04] MEDS ORDERED: MORPHINE 4 MG/1 ML INJ IV PRN (21:58)
[2021-10-04] MEDS ORDERED: MAGNESIUM HYDROXIDE (MOM) ORAL LIQD UDC PO PRN (21:58)
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
[2021-10-04] MEDS ORDERED: DEXTROSE 10% *Hypoglycemia IV PRN (22:14)
[2021-10-04] MEDS ORDERED: SODIUM CHLORIDE 0.9% 1000 ML 1,000 ML IV SCH (22:15)
[2021-10-04] MEDS: methylPREDNISolone Sod Succinate 40 MG/1 ML INJ IV SCH (23:40)
[2021-10-04] MEDS: INSULIN LISPRO 100 UNIT/ML SUB-Q SCH (23:53)
[2021-10-05] MEDS: IPRATROPIUM/ALBUTEROL SULFATE 3 ML AMPUL.NEB IH SCH ×6 (02:07→23:08)
[2021-10-05] MEDS: methylPREDNISolone Sod Succinate 40 MG/1 ML INJ IV SCH ×3 (05:14→23:00)
[2021-10-05 05:32] LABS: BUN/Creatinine Ratio 20; Blood Urea Nitrogen 16 mg/dL (9-20); Calcium 8.4 mg/dL (8.4-10.2); Hemolysis Index 6
[2021-10-05] MEDS: INSULIN LISPRO 100 UNIT/ML SUB-Q SCH ×4 (08:41→22:13)
--- NOTE | 2021-10-05 16:15 | Progress Note ---
Assessment and Plan (1) COPD exacerbation Current Visit: No Status: Inactive Plan to address problem: Patient placed on nebulizing treatments, IV steroids. We will also placed on empiric IV antibiotics for possible underlying bronchitis. We will keep O2 saturation greater or equal to 93%. (2) Rhabdomyolysis Current Visit: No Status: Inactive Plan to address problem: Patient placed on IV fluid. We will monitor creatinine kinase. (3) Hypertension Current Visit: No Status: Chronic Qualifiers: Hypertension type: essential hypertension Plan to address problem: We will resume routine medications and monitor vital signs closely. (4) T2DM (type 2 diabetes mellitus) Current Visit: No Status: Chronic Qualifiers: Diabetes mellitus fdc insulin use: unspecified fdc insulin use status Plan to address problem: Patient placed on sliding scale insulin. We will monitor Accu-Cheks closely. (5) DVT prophylaxis Current Visit: No Status: Acute Plan to address problem: Patient placed on subcutaneous heparin. (6) Full code status Current Visit: No Status: Acute Plan to address problem: Patient is full code. Subjective Date of service: 10/05/21 Objective - Constitutional Vitals: Vital Signs - 12hr 10/05/21 10/05/21 10/05/21 07:35 09:41 11:44 Temperature 97.5 F L 97.8 F Pulse Rate 75 93 H Pulse Rate [ 85 Bilateral] Respiratory 18 18 Rate Respiratory 16 Rate [Bilateral ] Blood Pressure 138/85 184/91 O2 Sat by Pulse 96 93 Oximetry 10/05/21 12:50 Temperature Pulse Rate Pulse Rate [ 88 Bilateral] Respiratory Rate Respiratory 16 Rate [Bilateral ] Blood Pressure O2 Sat by Pulse Oximetry - Labs CBC & Chem 7: 10/04/21 17:25 10/05/21 04:27 Labs: Abnormal lab results 10/04/21 10/04/21 10/04/21 Range/Units 17:25 17:25 17:25 Hgb 11.7 L (11.8-15.2) gm/dl RDW 15.3 H (13.2-15.2) % [place] % (Auto) 10.3 H (0.0-7.3) % Eos % (Auto) 4.6 H (0.0-4.3) % Lymph # (Auto) 1.1 L (1.2-5.4) K/mm3 D-Dimer 609.02 H (0-234) ng/mlDDU Potassium 3.4 L (3.6-5.0) mmol/L Glucose (75-100) mg/dL POC Glucose (70-105) mg/dL AST 44 H (5-40) units/L Total Creatine Kinase 2230 H (55-170) units/L CK-MB (CK-2) 10.9 H (0.0-4.0) ng/mL Total Protein 5.8 L (6.3-8.2) g/dL Albumin 3.7 L (3.9-5) g/dL Urine WBC (Auto) (0.0-6.0) /HPF 10/04/21 10/04/21 10/05/21 Range/Units 23:52 Unknown 04:27 Hgb (11.8-15.2) gm/dl RDW (13.2-15.2) % [place] % (Auto) (0.0-7.3) % Eos % (Auto) (0.0-4.3) % Lymph # (Auto) (1.2-5.4) K/mm3 D-Dimer (0-234) ng/mlDDU Potassium (3.6-5.0) mmol/L Glucose 218 H (75-100) mg/dL POC Glucose 140 H (70-105) mg/dL AST (5-40) units/L Total Creatine Kinase (55-170) units/L CK-MB (CK-2) (0.0-4.0) ng/mL Total Protein (6.3-8.2) g/dL Albumin (3.9-5) g/dL Urine WBC (Auto) > 182.0 H (0.0-6.0) /HPF 10/05/21 10/05/21 10/05/21 Range/Units 07:33 11:41 15:53 Hgb (11.8-15.2) gm/dl RDW (13.2-15.2) % [place] % (Auto) (0.0-7.3) % Eos % (Auto) (0.0-4.3) % Lymph # (Auto) (1.2-5.4) K/mm3 D-Dimer (0-234) ng/mlDDU Potassium (3.6-5.0) mmol/L Glucose (75-100) mg/dL POC Glucose 166 H 202 H 194 H (70-105) mg/dL AST (5-40) units/L Total Creatine Kinase (55-170) units/L CK-MB (CK-2) (0.0-4.0) ng/mL Total Protein (6.3-8.2) g/dL Albumin (3.9-5) g/dL Urine WBC (Auto) (0.0-6.0) /HPF HEART Score - HEART Score Troponin: Troponin T < 0.010 ng/mL (0.00-0.029) 10/04/21 17:25
--- NOTE | 2021-10-05 17:32 | Electrocardiograph Report ---
[facility] Test Date: 2021-10-04 Test Time: 15:43:32 Pat Name: AKANKSHA LEMOS Department: Room: A474 1 Gender: M [employer] Stripper: ZACK : [id number] Requested By: MABLE FINLEY Order Number: [id number] Reading MD: Yamilet Cao Measurements Intervals [place] Rate: 76 P: 66 FL: 184 QRS: 43 QRSD: 94 T: 29 QT: 384 QTc: 433 Interpretive Statements Sinus rhythm Compared to ECG 01/15/2021 09:48:58 No significant changes Electronically Signed On 10-05-2021 17:32:37 EST by Yamilet Cao
[2021-10-06] MEDS: IPRATROPIUM/ALBUTEROL SULFATE 3 ML AMPUL.NEB IH SCH ×5 (03:38→16:47)
[2021-10-06] MEDS: methylPREDNISolone Sod Succinate 40 MG/1 ML INJ IV SCH ×2 (07:00→13:15)
[2021-10-06] MEDS: INSULIN LISPRO 100 UNIT/ML SUB-Q SCH ×2 (09:32→12:11)
--- NOTE | 2021-10-06 13:44 | Discharge Summary ---
Providers - Providers Date of Admission: 10/04/21 21:59 Date of discharge: 10/06/21 Attending physician: TOLU VILLEGAS 10/04/21 21:59 Consult to Dietitian/Nutrition [CONS] Routine Physician Instructions: Reason For Exam: Reason for Consult: Diet education Primary care physician: SHERYL ALAN Hospitalization Condition: Stable Final Discharge Diagnosis (Prints w/discharge instructions): --COPD exacerbation. --acute on chronic respiratory failure. --rhabdomyolysis. --morbid obesity Time spent for discharge: 34 minutes Core Measure Documentation - Palliative Care Palliative Care/ Comfort Measures: Not Applicable - Core Measures Any of the following diagnoses?: none Exam - Constitutional Vitals: Temp Pulse Resp BP Pulse Ox 98.1 F 78 18 122/54 97 10/06/21 11:25 10/06/21 13:06 10/06/21 13:06 10/06/21 11:25 10/06/21 11:25 Plan Activity: advance as tolerated Weight Bearing Status: Weight Bear as Tolerated Diet: low fat, low salt Additional Instructions: f/u with GI in one to two weeks for possible EGD Follow up with: SHERYL ALAN, SADA-C [Primary Care Provider] - 7 Days FELIPE WINSTON MD [Staff Physician] - 7 Days Prescriptions: predniSONE [Deltasone] 50 mg PO QDAY #7 Ipratropium/Albuterol Sulfate [DUONEB *Not for PRN Use*] 1 ampul IH Q4HRT #30 ampul.neb
[2021-10-06 16:10] VITALS: BP 125/63
== END 2021-10-06 17:37 | disposition home or self-care (01) | DRG 189 ==
LOC: ED 13:50 → 3A 21:59 → 4A 10-05 00:18
PROVIDERS: ADMIT Internal Medicine Geriatric Medicine; ATTEND Internal Medicine
DX: J96.20 Acute and chronic respiratory failure, unspecified whether with hypoxia or hypercapnia (principal); J44.1 Chronic obstructive pulmonary disease with (acute) exacerbation; M62.82 Rhabdomyolysis; Z68.43 Body mass index [BMI] 50.0-59.9, adult; E11.9 Type 2 diabetes mellitus without complications; I10 Essential (primary) hypertension; M19.90 Unspecified osteoarthritis, unspecified site; F17.200 Nicotine dependence, unspecified, uncomplicated; E66.01 Morbid (severe) obesity due to excess calories; Z79.84 Long term (current) use of oral hypoglycemic drugs; Z79.899 Other long term (current) drug therapy; Z88.8 Allergy status to other drugs, medicaments and biological substances
CPT/HCPCS: 36415; 71045; 71275; 80048; 80053; 81001; 82550; 82553; 82962; 83880; 84484; 85025; 85379; 85610; 93005; 93010; 94640; 94644; 99406; G0378; Q0162; Q9967; J0696; J1815; J1956; J2920; J7030